=== PATIENT | male | born 1950 | race American Indian/Alaskan Native ===

== ENCOUNTER 2017-02-23 12:19 | Emergency (ER) | payer OTHER, MEDICAID ==
[2017-02-23 12:34] VITALS: BP 150/74; PULSE 69; RESP 18; TEMP 97.3; O2SAT 99
--- NOTE | 2017-02-23 13:02 | C.PDOC ---
History Of Present Illness 66-year-old male presents to the emergency department, referred by Dr Kruse for left axillary mass. Patient is scheduled for surgery on 03/01. He presents today with Rx for CT chest with/without contrast (requested by Dr. Kruse). Patient states he was seen by Dr Kruse earlier today, and instructed to come to ED. Patient denies pain at site, chest pain, fever, SOB, discharge. Time Seen by Provider: 02/23/17 12:44 Chief Complaint (Nursing): Medical Clearance History Per: Patient History/Exam Limitations: no limitations Severity: None Past Medical History Reviewed: Historical Data, Nursing Documentation, Vital Signs Vital Signs: Last Vital Signs Temp 97.3 F L 02/23/17 12:32 Pulse 69 02/23/17 12:32 Resp 18 02/23/17 12:32 BP 150/74 02/23/17 12:32 Pulse Ox 99 02/28/17 17:48 - Medical History PMH: HTN, Hypercholesterolemia Family History: States: No Known Family Hx - Social History Hx Alcohol Use: Yes Hx Substance Use: No Review Of Systems Except As Marked, All Systems Reviewed And Found Negative. Constitutional: Negative for: Fever Cardiovascular: Negative for: Chest Pain, Palpitations Respiratory: Negative for: Shortness of Breath Gastrointestinal: Negative for: Nausea, Vomiting, Diarrhea Musculoskeletal: Negative for: Back Pain Neurological: Negative for: Headache Physical Exam - Physical Exam Appears: Well, Non-toxic, No Acute Distress Skin: Warm, Dry, Other (LEFT axilla: 4-5cm growth/abscess at inferior aspect, hard to the touch, not fluctuant, no discharge t) Eye(s): bilateral: Normal Inspection Oral Mucosa: Moist Cardiovascular: Rhythm Regular Respiratory: Normal Breath Sounds, No Rales, No Rhonchi, No Wheezing Extremity: Normal ROM Neurological/Psych: Oriented x3 ED Course And Treatment - Laboratory Results Result Diagrams: 02/23/17 13:05 O2 Sat by Pulse Oximetry: 99 (RA) Pulse Ox Interpretation: Normal Progress Note: 1:10pm- Patient does not want to wait for blood work, and then for CT scan to be done and read. He wants to be discharged home at this time. Patient instructed to follow up with Dr. Kruse, will cancel CT scan. Blood work already drawn & sent. Reevaluation Time: 13:25 Reassessment Condition: Improved Disposition Counseled Patient/Family Regarding: Need For Followup - Disposition Referrals: Edu Kruse MD [Staff Provider] - Disposition: HOME/ ROUTINE Disposition Time: 13:25 Condition: STABLE Additional Instructions: FOLLOW UP WITH DR KRUSE IN 1-2 DAYS RETURN TO ER IF YOU HAVE ANY CONCERNING SYMPTOMS Forms: General Discharge Instructions Print Language: LAO - POA Present On Arrival: None - Clinical Impression Clinical Impression: Axillary mass - Scribe Statement The provider has reviewed the documentation as recorded by the Jasmin Jose All medical record entries made by the Jasmin were at my direction and personally dictated by me. I have reviewed the chart and agree that the record accurately reflects my personal performance of the history, physical exam, medical decision making, and the department course for this patient. I have also personally directed, reviewed, and agree with the discharge instructions and disposition.
[2017-02-23 13:18] LABS: BASO % 0.7 % (0.0-2.0); EOS # 0.2 K/uL (0.0-0.7); EOS % 2.9 % (0.0-4.0); HEMATOCRIT 36.2 % (35.0-51.0); LYMPH # 1.6 K/uL (1.0-4.3); LYMPH % 31.8 % (20.0-40.0); MEAN CORPUSCULAR HEMOGLOBIN 29.6 pg (27.0-31.0); MEAN CORPUSCULAR HGB CONC 31.5 g/dL (33.0-37.0); MEAN PLATELET VOLUME 11.5 fL (7.2-11.7); MONO # 0.5 K/uL (0.0-0.8); MONO % 9.3 % (0.0-10.0); NRBC % 0.1 % (0.0-2.0); RED CELL DISTRIBUTION WIDTH 15.7 % (11.5-14.5); WHITE BLOOD COUNT 5.1 K/uL (4.8-10.8)
== END 2017-02-23 13:30 | disposition home or self-care (01) ==
LOC: C.ER 12:19
DX: R22.32 Localized swelling, mass and lump, left upper limb (principal)

== ENCOUNTER 2017-12-01 07:49 | Emergency (ER) | payer MEDICARE, MEDICAID ==
[2017-12-01 07:49] VITALS: BMI 25.0
--- NOTE | 2017-12-01 09:02 | C.PDOC ---
History Of Present Illness Patient reports history of chronic back pain and is under the care of pain management. Patient fell injuring his right lower extremity after a fall this morning. transferred to ED by BLS. denies head injury, LOC dizziness or back pain Time Seen by Provider: 12/01/17 07:50 Chief Complaint (Nursing): Trauma History Per: Patient History/Exam Limitations: no limitations Onset/Duration Of Symptoms: Sudden Onset Current Symptoms Are (Timing): Still Present Severity: Mild Pain Scale Rating Of: 2 Recent travel outside of the [place]: No Additional History Per: Patient - Hip Description Of Injury: Fell, Tripped - Knee Description Of Injury: Fell - Ankle/Foot Description Of Injury: Fell Past Medical History Reviewed: Historical Data, Nursing Documentation, Vital Signs Vital Signs: Last Vital Signs Temp 97 F L 12/01/17 10:05 Pulse 76 12/01/17 10:05 Resp 116 H 12/01/17 10:05 BP 166/72 H 12/01/17 10:05 Pulse Ox 99 12/01/17 10:05 - Medical History PMH: Back Problems, HTN, Hypercholesterolemia Surgical History: No Surg Hx Family History: States: No Known Family Hx - Social History Hx Alcohol Use: Yes Hx Substance Use: No - Immunization History Hx Tetanus Toxoid Vaccination: No Hx Influenza Vaccination: No Hx Pneumococcal Vaccination: No Review Of Systems Constitutional: Negative for: Fever Respiratory: Negative for: Cough Musculoskeletal: Positive for: Leg Pain (right hip and knee). Negative for: Back Pain Neurological: Negative for: Weakness Physical Exam - Physical Exam Appears: Well, Non-toxic Skin: Normal Color Head: Atraumatic, Normacephalic Neck: Normal ROM Chest: Symmetrical Cardiovascular: Rhythm Regular Respiratory: Normal Breath Sounds Gastrointestinal/Abdominal: No Tenderness Back: Normal Inspection, No Paraspinal Tenderness Extremity: Tenderness (right hip and knee) Neurological/Psych: Oriented x3 Gait: Unable To Assess ED Course And Treatment O2 Sat by Pulse Oximetry: 97 - Other Rad No standard instances X-Ray: Interpreted by Me Interpretation: X-Ray right hip (-) FX, DJD. X-ray right knee (-) Fx Progress Note: Treated with motrin 600 mg PO. On re-evaluation lungs clear, ambulating with steady gait. Patient declines crutches or cane. Discharge in stable condition Reassessment Condition: Improved Disposition Counseled Patient/Family Regarding: Diagnosis, Need For Followup - Disposition Referrals: [facility] [Outside] [facility] [Outside] [facility] [Outside] Disposition: HOME/ ROUTINE Disposition Time: 09:30 Condition: STABLE Additional Instructions: Follow up with PMD for further evaluation Prescriptions: Naproxen [Naprosyn] 1 tab PO BID PRN #25 tab PRN Reason: Pain Instructions: Osteoarthritis (DC), Hip Pain Forms: [employer] (Korean) - POA Present On Arrival: None - Clinical Impression Clinical Impression: Contusion, Joint pain, Arthritis
[2017-12-01 10:06] VITALS: BP 166/72; PULSE 76; RESP 116; TEMP 97
--- NOTE | 2017-12-01 10:26 | RAD ---
PROCEDURE: Right Knee Radiographs. HISTORY: Pain COMPARISON: None. FINDINGS: BONES: No evidence of acute displaced fracture nor dislocation. JOINTS: There is moderate joint space narrowing. Very tiny lateral marginal tibial osteophyte felt present. JOINT EFFUSION: Trace joint effusion may be present OTHER FINDINGS: Vascular calcifications are present. IMPRESSION: No evidence of acute displaced fracture nor dislocation. . Moderate joint space narrowing. Suspect trace joint effusion.
--- NOTE | 2017-12-01 17:52 | RAD ---
PROCEDURE: Pelvis right hip dated 12/01/2017 HISTORY: . Status post fall COMPARISON: No prior study available comparison TECHNIQUE: FINDINGS: The current study reveals marked deformity and flattening of the right femoral head with significant sclerosis and subchondral cystic changes. There is marked of widening of the right acetabulum with sclerosis and subchondral cystic changes along the superior acetabular rim. 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 Left hip appears intact and appropriately located. Degenerative spondylosis lumbosacral spine. IMPRESSION: Marked deformity right femoral head and right acetabulum likely due to AVN and secondary significant degenerative osteoarthritis
[2017-12-01 18:17] VITALS: O2SAT 97
== END 2017-12-01 10:49 | disposition home or self-care (01) ==
LOC: C.ER 07:49
DX: S80.01XA Contusion of right knee, initial encounter (principal); W01.0XXA Fall on same level from slipping, tripping and stumbling without subsequent striking against object, initial encounter; M13.851 Other specified arthritis, right hip; M25.561 Pain in right knee